=== PATIENT | male | born 1980 | race Caucasian/White ===

== ENCOUNTER 2019-03-30 09:35 | Emergency (ER) | payer MEDICAID ==
[~2019-03-30] VITALS: Ht 172.7 cm; Wt 86.4 kg
[~2019-03-30 09:35] MED LIST: ANTI10DR6 OT; [UNRECOGNIZED DRUG - CODE] OT
[2019-03-30 11:31] VITALS: BP 117/78
[2019-03-30] MEDS ORDERED: IBUPROFEN 600 MG TABLET PO ONE (11:45)
== END 2019-03-30 12:35 | disposition home or self-care (01) ==
LOC: EMS 09:36
DX: M65.4 Radial styloid tenosynovitis [de Quervain] (principal)

== ENCOUNTER 2019-11-22 21:24 | Emergency (ER) | payer MEDICAID ==
[~2019-11-22] VITALS: Ht 165.1 cm; Wt 85.5 kg
[2019-11-23 01:16] VITALS: BP 131/68
== END 2019-11-23 01:20 | disposition home or self-care (01) ==
LOC: EMS 21:24
DX: S20.212A Contusion of left front wall of thorax, initial encounter (principal); S50.02XA Contusion of left elbow, initial encounter; S00.03XA Contusion of scalp, initial encounter; V19.9XXA Pedal cyclist (driver) (passenger) injured in unspecified traffic accident, initial encounter; Y93.I9 Activity, other involving external motion; Y92.89 Other specified places as the place of occurrence of the external cause; Y99.8 Other external cause status
CPT/HCPCS: 70450; 71100

== ENCOUNTER 2020-05-20 03:20 | Emergency (ER) | payer MEDICAID ==
[~2020-05-20] VITALS: Ht 167.6 cm; Wt 85.9 kg
[2020-05-20] MEDS ORDERED: PROPARACAINE HCL 0.5% 15 ML OPHTHALMIC SOLUTION ONE (03:34)
[2020-05-20] MEDS ORDERED: FLUORESCEIN SODIUM 1 MG STRIP ONE (03:34)
[2020-05-20] MEDS ORDERED: PROPARACAINE HCL 0.5% 15 ML OPHTHALMIC SOLUTION OU ONE (03:45)
[2020-05-20 04:16] VITALS: BP 118/71
== END 2020-05-20 04:17 | disposition home or self-care (01) ==
LOC: EMS 03:20
DX: S05.02XA Injury of conjunctiva and corneal abrasion without foreign body, left eye, initial encounter (principal); W22.8XXA Striking against or struck by other objects, initial encounter; Y93.89 Activity, other specified; Y92.89 Other specified places as the place of occurrence of the external cause; Y99.8 Other external cause status
CPT/HCPCS: 99173

== ENCOUNTER 2021-04-21 05:52 | Emergency (ER) | payer MEDICAID ==
[~2021-04-21] VITALS: Ht 175.3 cm; Wt 87.7 kg
[2021-04-21 06:00] VITALS: BP 110/84
[2021-04-21] MEDS ORDERED: FLUORESCEIN SODIUM 1 MG STRIP ONE (06:26)
[2021-04-21] MEDS ORDERED: ACETAMINOPHEN 500 MG TABLET PO ONE (07:15)
[2021-04-21] MEDS ORDERED: GENTAMICIN SULFATE 0.3% OPHTHALMIC SOLUTION 5 ML OS ONE (07:15)
[2021-04-21] MEDS ORDERED: ERYTHROMYCIN 0.5% 3.5 GM TUBE OPHTHALMIC OINTMENT OS ONE (07:15)
== END 2021-04-21 07:43 | disposition home or self-care (01) ==
LOC: EMS 05:55
DX: S00.12XA Contusion of left eyelid and periocular area, initial encounter (principal); X58.XXXA Exposure to other specified factors, initial encounter; Y93.89 Activity, other specified; Y92.89 Other specified places as the place of occurrence of the external cause; Y99.8 Other external cause status
CPT/HCPCS: 99284; Z7502; Z7610

== ENCOUNTER → 2024-05-22 | Outpatient (CLI) | payer OTHER ==
[2024-05-23 05:08] LABS: VARICELLA ZOSTER IGG AB TITER Reactive (Non Reactive)
[2024-05-23 07:07] LABS: RUBELLA AB IGG-REFLAB 5.27 index (Immune >0.99)
[2024-05-26 11:07] LABS: QUANTIFERON+, Nil Value 0.03 IU/mL; QUANTIFERON+,Mitogen Value >10.00 IU/mL; QUANTIFERON+,TB1 Antigen Value 2.34 IU/mL; QUANTIFERON+,TB2 Antigen Value 2.79 IU/mL; QUANTIFERON, TB GOLD PLUS Positive (Negative)
== END | disposition home or self-care (01) ==
LOC: LABMN 12:53
PROVIDERS: ATTEND Family Medicine
DX: Z11.3 Encounter for screening for infections with a predominantly sexual mode of transmission (principal); Z02.89 Encounter for other administrative examinations; Z20.828 Contact with and (suspected) exposure to other viral communicable diseases; Z20.1 Contact with and (suspected) exposure to tuberculosis
CPT/HCPCS: 86480; 86592; 86706; 86735; 86762; 86765; 86787; 87340; 87491; 87591

== ENCOUNTER 2024-06-09 11:57 | Emergency (ER) | payer OTHER ==
[~2024-06-09] VITALS: Ht 172.7 cm; Wt 91.0 kg
[2024-06-09 12:10] VITALS: TEMP 98.3
[2024-06-09 15:38] VITALS: BP 131/76; PULSE 72; RESP 18; O2SAT 99
== END 2024-06-09 15:20 | disposition home or self-care (01) ==
LOC: EMS 11:57
DX: Z11.1 Encounter for screening for respiratory tuberculosis (principal)
CPT/HCPCS: 71045; 71047; 99283